=== PATIENT | male | born 1965 | race Hispanic/Latino ===

== ENCOUNTER 2019-03-08 15:44 | Inpatient (IN) ==
[2019-03-08] MEDS ORDERED: Sodium Chloride 0.9% 1,000 ML PRIMARY IV ONE (16:12)
[2019-03-08] MEDS ORDERED: IPRATROPIUM/ALBUTEROL SULFATE 3 ML NEB NEB ONE (16:12)
[2019-03-08] MEDS ORDERED: ONDANSETRON 4 MG/2 ML VIAL IVP ONE (16:12)
[2019-03-08] MEDS ORDERED: cefTRIAXone Inj 2 GM in Sodium Chloride 0.9% 100 ML IV ONE (16:19)
[2019-03-08 16:45] LABS: VENOUS PH 7.43 (7.32-7.42)
[2019-03-08 17:02] LABS: Hematocrit [HCT] 52.3 % (42.0-52.0); Hemoglobin [HGB] 17.2 g/dL (14.0-18.0); MEAN CORPUSCULAR HGB CONC 32.9 g/dL (33-37); MEAN CORPUSCULAR VOLUME 94.2 FL (80-90); RED BLOOD COUNT 5.55 10^6/uL (4.70-6.10)
[2019-03-08 17:03] LABS: BASOPHILS # (AUTO) 0.08 10*3/UL; BASOPHILS % (AUTO) 0.5 % (0-1); EOSINOPHILS # (AUTO) 0.09 10*3/UL; EOSINOPHILS % (AUTO) 0.5 % (0-8); LYMPHOCYTES # (AUTO) 2.59 10*3/uL; MEAN PLATELET VOLUME 10.7 FL (7.4-12.2); MONOCYTES # (AUTO) 1.55 10*3/UL (0.3-0.8); MONOCYTES % (AUTO) 9.1 % (5-15); NEUTROPHILS # (AUTO) 12.55 10*3/UL; NEUTROPHILS % (AUTO) 74.1 % (50-80); PLATELET MORPHOLOGY COMMENT NORMAL MORPHOLOGY (NORM); RBC MORPHOLOGY COMMENT NORMAL MORPHOLOGY (NORM); WBC MORPHOLOGY COMMENT NORMAL MORPHOLOGY (NORM)
[2019-03-08 17:07] LABS: BLOOD UREA NITROGEN 7 mg/dL (7-22); BUN/CREATININE RATIO 5.83 (6-20); SERUM ALBUMIN 4.5 g/dL (3.5-4.8)
[2019-03-08 17:40] LABS: Erythrocyte Sediment Rate 25 MM/HR (0-15)
[2019-03-08 18:07] LABS: BILIRUBIN,URINE SMALL (NEG); CLARITY,URINE CLEAR (CLEAR); COLOR,URINE YELLOW (Y); GLUCOSE, URINE (UA) 500 mg/dL (NEG); OCCULT BLOOD,URINE NEGATIVE (NEG); PROTEIN,URINE 100 mg/dl (NEG); URINE SAMPLE TYPE VOIDED SPECIMEN; UROBILINOGEN,URINE 0.2 EU/dL (0.2)
[2019-03-08 18:09] LABS: SQUAMOUS EPITHELIAL CELL,UR FEW; WBC,URINE 0-2
[2019-03-08] MEDS ORDERED: ACETAMINOPHEN 500 MG TABLET PO ONE (18:16)
[2019-03-08] MEDS ORDERED: ONDANSETRON 4 MG/2 ML VIAL IVP PRN (18:47)
[2019-03-08] MEDS ORDERED: LIDOCAINE W/ SODIUM BICARB 0.5 ML SYR SUBD PRN (18:47)
[2019-03-08] MEDS ORDERED: KETOROLAC 15 MG/1 ML VIAL IVP PRN (19:04)
[2019-03-08] MEDS: LISINOPRIL 20 MG TABLET PO SCH (19:07)
[2019-03-08] MEDS: HYDROCHLOROTHIAZIDE 12.5 MG CAPSULE PO SCH (19:07)
[2019-03-08] MEDS: ASCORBIC ACID Chewable 500 MG TABLET PO SCH (19:15)
[2019-03-08] MEDS: OMEPRAZOLE 40 MG CAPSULE PO SCH (19:15)
[2019-03-09] MEDS: ACETAMINOPHEN 500 MG TABLET PO PRN ×4 (03:50→19:30)
[2019-03-09 06:07] LABS: BLOOD UREA NITROGEN 9 mg/dL (7-22); SERUM ALBUMIN 3.3 g/dL (3.5-4.8)
[2019-03-09 06:23] LABS: Hematocrit [HCT] 45.5 % (42.0-52.0); Hemoglobin [HGB] 14.7 g/dL (14.0-18.0); MEAN CORPUSCULAR HGB CONC 32.3 g/dL (33-37); MEAN CORPUSCULAR VOLUME 94.8 FL (80-90); MEAN PLATELET VOLUME 10.4 FL (7.4-12.2); NEUTROPHILS % (AUTO) 73.4 % (50-80)
[2019-03-09 06:24] LABS: BASOPHILS # (AUTO) 0.05 10*3/UL; BASOPHILS % (AUTO) 0.4 % (0-1); EOSINOPHILS # (AUTO) 0.03 10*3/UL; EOSINOPHILS % (AUTO) 0.2 % (0-8); LYMPHOCYTES # (AUTO) 2.04 10*3/uL; MONOCYTES # (AUTO) 1.41 10*3/UL (0.3-0.8); MONOCYTES % (AUTO) 10.3 % (5-15); NEUTROPHILS # (AUTO) 10.02 10*3/UL; PLATELET MORPHOLOGY COMMENT NORMAL MORPHOLOGY (NORM); RBC MORPHOLOGY COMMENT NORMAL MORPHOLOGY (NORM); WBC MORPHOLOGY COMMENT NORMAL MORPHOLOGY (NORM)
[2019-03-09] MEDS: OMEPRAZOLE 40 MG CAPSULE PO SCH (08:02)
[2019-03-09] MEDS: HYDROCHLOROTHIAZIDE 12.5 MG CAPSULE PO SCH (08:02)
[2019-03-09] MEDS: LISINOPRIL 20 MG TABLET PO SCH (08:02)
[2019-03-09] MEDS: ASCORBIC ACID Chewable 500 MG TABLET PO SCH (08:03)
[2019-03-09] MEDS: POTASSIUM CHLORIDE 20 MEQ TAB PO SCH ×2 (09:34→21:46)
[2019-03-09] MEDS: BENZONATATE 100 MG CAPSULE PO PRN ×2 (16:45→21:46)
[2019-03-09] MEDS ORDERED: ALBUTEROL SULFATE 2.5 MG/3 ML NEB PRN (17:02)
[2019-03-09] MEDS ORDERED: cefTRIAXone Inj 2 GM in Sodium Chloride 0.9% 100 ML IV SCH (18:00)
[2019-03-10 04:51] LABS: BASOPHILS # (AUTO) 0.05 10*3/UL; BASOPHILS % (AUTO) 0.5 % (0-1); Hematocrit [HCT] 46.1 % (42.0-52.0); Hemoglobin [HGB] 14.6 g/dL (14.0-18.0); LYMPHOCYTES # (AUTO) 2.32 10*3/uL; MEAN CORPUSCULAR HGB CONC 31.7 g/dL (33-37); MEAN CORPUSCULAR VOLUME 96.6 FL (80-90); MEAN PLATELET VOLUME 10.5 FL (7.4-12.2); MONOCYTES # (AUTO) 1.33 10*3/UL (0.3-0.8); MONOCYTES % (AUTO) 13.2 % (5-15); NEUTROPHILS # (AUTO) 6.05 10*3/UL; NEUTROPHILS % (AUTO) 59.9 % (50-80); RED BLOOD COUNT 4.77 10^6/uL (4.70-6.10)
[2019-03-10 05:04] LABS: PLATELET MORPHOLOGY COMMENT NORMAL MORPHOLOGY (NORM); RBC MORPHOLOGY COMMENT NORMAL MORPHOLOGY (NORM); WBC MORPHOLOGY COMMENT NORMAL MORPHOLOGY (NORM)
[2019-03-10 05:11] LABS: BLOOD UREA NITROGEN 11 mg/dL (7-22); BUN/CREATININE RATIO 13.75 (6-20); SERUM ALBUMIN 3.2 g/dL (3.5-4.8)
[2019-03-10 07:39] VITALS: BP 133/77; RESP 18; TEMP 98.6
[2019-03-10] MEDS: ASCORBIC ACID Chewable 500 MG TABLET PO SCH (08:27)
[2019-03-10] MEDS: POTASSIUM CHLORIDE 20 MEQ TAB PO SCH (08:28)
[2019-03-10] MEDS: OMEPRAZOLE 40 MG CAPSULE PO SCH (08:28)
[2019-03-10] MEDS: LISINOPRIL 20 MG TABLET PO SCH (08:28)
[2019-03-10 10:10] VITALS: O2SAT 92
== END 2019-03-10 11:12 | disposition home or self-care (01) | DRG 179 ==
LOC: EDBD → ER 15:44 → MED/SURG 18:32
PROVIDERS: ADMIT Internal Medicine; ATTEND Internal Medicine